=== PATIENT | male | born 1985 | race Caucasian/White ===

== ENCOUNTER 2020-12-11 10:25 | Emergency (ER) | payer BC ==
[~2020-12-11 10:25] MED LIST: CYCLOBENZAPRINE10 MG PO
[2020-12-11] MEDS ORDERED: CYCLOBENZAPRINE5 MG PO (17:52)
[2020-12-11] MEDS ORDERED: PREDNISONE 20 M20 MG PO (17:52)
[2020-12-11] MEDS ORDERED: HYDROCODON-ACE1 EAC4 PO (17:54)
== END 2020-12-11 18:12 | disposition home or self-care (01) ==
LOC: ER1 10:25
DX: S39.012A Strain of muscle, fascia and tendon of lower back, initial encounter (principal); M51.26 Other intervertebral disc displacement, lumbar region; F17.200 Nicotine dependence, unspecified, uncomplicated; X50.9XXA Other and unspecified overexertion or strenuous movements or postures, initial encounter
CPT/HCPCS: 72131; 96372; 99283; J1885

== ENCOUNTER 2020-12-26 14:22 | Emergency (ER) | payer BC ==
[~2020-12-26 14:22] MED LIST changes: +CYCLOBENZAPRINE5 MG PO; +HYDROCODON-ACE1 EAC4 PO; +PREDNISONE 20 M20 MG PO
[2020-12-26 19:14] LABS: HEMOGLOBIN 13.7 gm/dl (14.0-17.5); RED BLOOD COUNT 4.54 M/UL (4.20-5.50); WHITE BLOOD COUNT 17.7 K/UL (4.5-11.0)
[2020-12-26 19:39] LABS: BUN/CREATININE RATIO 26 (0-10)
[2020-12-26] MEDS ORDERED: PHENERGAN 25 MG25 M1 PO (22:28)
[2020-12-26] MEDS ORDERED: BUTALB-ACETAMI1 EACH PO (22:28)
== END 2020-12-26 20:40 | disposition home or self-care (01) ==
LOC: ER1 14:22
PROVIDERS: Family Medicine
DX: R51.9 Headache, unspecified (principal); M54.2 Cervicalgia; D72.829 Elevated white blood cell count, unspecified; Z20.822 Contact with and (suspected) exposure to COVID-19; R11.2 Nausea with vomiting, unspecified; M54.30 Sciatica, unspecified side; F17.200 Nicotine dependence, unspecified, uncomplicated; Z79.899 Other long term (current) drug therapy
CPT/HCPCS: 0240U; 36415; 70450; 72125; 80053; 83605; 85025; 87081; 87880; 96374; 96375; 99284; J1885; J2405; J7030